=== PATIENT | female | born 1970 | race Caucasian/White ===

== ENCOUNTER 2020-03-22 02:47 | Emergency (ER) | payer MEDICAID ==
[~2020-03-22] VITALS: Ht 177.8 cm; Wt 77.1 kg
[2020-03-22] MEDS ORDERED: LISINOPRIL 10 MG TABLET PO ONE (04:15)
[2020-03-22] MEDS ORDERED: AZITHROMYCIN 250 MG TABLET PO ONE (04:30)
[2020-03-22] MEDS ORDERED: CEFTRIAXONE 500 MG VIAL IM ONE (04:30)
[2020-03-22] MEDS ORDERED: AZITHROMYCIN 250 MG TABLET ONE (04:33)
[2020-03-22] MEDS ORDERED: LISINOPRIL 10 MG TABLET ONE (04:33)
[2020-03-22] MEDS ORDERED: CEFTRIAXONE 500 MG VIAL ONE (04:34)
[2020-03-22 04:50] VITALS: BP 198/117
--- NOTE | 2020-03-22 04:59 | NUR ---
URINE SENT EARLIER, MEDS ADMINISTERED, PT AWAITING FOR LAB RESULTS.
--- NOTE | 2020-03-22 04:59 | NUR ---
PT REFUSED TO WAIT FOR ACI AND ELOPED, PT AMBULATED W/O DIFF/TOOK ALL BELONGINGS.
[2020-03-25 13:21] LABS: *GC NAA Positive (Negative); *TRIC.VAG. NAA Negative (Negative)
== END 2020-03-22 04:59 | disposition left against medical advice (07) ==
LOC: ER 02:59
DX: Z20.2 Contact with and (suspected) exposure to infections with a predominantly sexual mode of transmission (principal); Z88.0 Allergy status to penicillin; Z85.828 Personal history of other malignant neoplasm of skin; I10 Essential (primary) hypertension
CPT/HCPCS: 87491; 96372; 99284; J0696; A4663; Q0144

== ENCOUNTER 2022-06-19 01:30 | Emergency (ER) | payer MEDICAID ==
[~2022-06-19] VITALS: Ht 177.8 cm; Wt 72.6 kg
--- NOTE | 2022-06-19 02:27 | NUR ---
PATIENT AMBULATED TO ROOM, INFORMED OF PLAN OF CARE, ASSISTED INTO GOWN AND PLACED ON MONITOR. NO S/S OF ANY DISTRESS NOTED, MD EXAM WAS DONE AT BEDSIDE.
[2022-06-19] MEDS ORDERED: CLONIDINE HCL 0.2 MG TABLET PO ONE (02:30)
[2022-06-19] MEDS ORDERED: OXYCODONE/APAP 5-325 MG TABLET PO ONE (02:30)
[2022-06-19] MEDS ORDERED: OXYCODONE/APAP 5-325 MG TABLET ONE (02:33)
[2022-06-19] MEDS ORDERED: CLONIDINE HCL 0.2 MG TABLET ONE (02:34)
--- NOTE | 2022-06-19 03:02 | NUR ---
XRAY AT BEDSIDE.
[2022-06-19] MEDS ORDERED: HYDR-3980 PO (03:57)
--- NOTE | 2022-06-19 04:19 | NUR ---
ACI GIVEN STATES UNDERSTANDING, REMAINS STABLE FOR DISCHARGE HOME.
[2022-06-19 04:20] VITALS: BP 152/93
== END 2022-06-19 04:21 | disposition home or self-care (01) ==
LOC: ER 01:30
DX: S20.211A Contusion of right front wall of thorax, initial encounter (principal); I10 Essential (primary) hypertension; Z71.6 Tobacco abuse counseling; F17.210 Nicotine dependence, cigarettes, uncomplicated; Z88.0 Allergy status to penicillin; Z79.899 Other long term (current) drug therapy; W22.8XXA Striking against or struck by other objects, initial encounter; Y93.89 Activity, other specified; Y92.89 Other specified places as the place of occurrence of the external cause; Y99.8 Other external cause status
CPT/HCPCS: 71045; A4663

== ENCOUNTER 2022-07-01 06:11 | Emergency (ER) | payer MEDICAID ==
[~2022-07-01] VITALS: Ht 177.8 cm; Wt 72.6 kg
[~2022-07-01 06:11] MED LIST: HYDR-3980 PO
[2022-07-01] MEDS ORDERED: ACETAMINOPHEN 325 MG TABLET PO ONE (07:00)
[2022-07-01] MEDS ORDERED: KETOROLAC TROMETHAMINE 30 MG INJ IM ONE (07:00)
[2022-07-01] MEDS ORDERED: DIAZEPAM 2 MG TABLET PO ONE (07:00)
[2022-07-01] MEDS ORDERED: ACETAMINOPHEN ES 500 MG TABLET ONE (07:06)
[2022-07-01] MEDS ORDERED: DIAZEPAM 2 MG TABLET ONE (07:06)
[2022-07-01] MEDS ORDERED: KETOROLAC TROMETHAMINE 30 MG INJ ONE (07:06)
--- NOTE | 2022-07-01 07:20 | NUR ---
Received patient awake in bed. AO x 4. Patient's chief complaint is back pain. She states she had a fall 2 days ago and injured her back. Patient's pain level is 10/10. Safety precautions in place. Will continue to monitor.
[2022-07-01 07:37] LABS: *BLOOD, URINE NEGATIVE (NEGATIVE); *CLARITY,URINE CLEAR (CLEAR); *COLOR,URINE YELLOW (YELLOW); *KETONES,URINE NEGATIVE (NEGATIVE); *UROBILINOGEN,URINE 0.2 E.U./dl (NORMAL); LEUKOCYTE ESTERASE ,URINE NEGATIVE (NEGATIVE); NITRITE, URINE NEGATIVE (NEGATIVE); UGLUCOSE NEGATIVE (NEGATIVE)
[2022-07-01 07:46] LABS: *URINE HCG, QUAL NEGATIVE (NEGATIVE)
[2022-07-01 07:54] LABS: *BILIRUBIN,URIN 1+ (NEGATIVE)
[2022-07-01] MEDS ORDERED: CARB15DR63 LEFT EAR (08:01)
--- NOTE | 2022-07-01 08:24 | NUR ---
Patient discharged to home in stable condition. Written and verbal after care instructions given. Patient verbalizes understanding of instructions. Stressed follow up or return to ER for worsening s/s.
[2022-07-01 08:25] VITALS: BP 141/86
[2022-07-01 09:58] LABS: BACTERIA,URINE FEW /HPF (NONE SEEN); RBC,URINE 0-3 /HPF (0-3); SQUAMOUS EPITHELIAL CELL,UR MODERATE /HPF (NONE SEEN); WBC,URINE 0-3 /HPF (0-3)
[2022-07-01 09:59] LABS: URINE AMORPHOUS PHOSPHATES MANY /HPF
== END 2022-07-01 08:31 | disposition home or self-care (01) ==
LOC: ER 06:18
DX: M54.50 Low back pain, unspecified (principal); H61.22 Impacted cerumen, left ear; G89.29 Other chronic pain; M54.9 Dorsalgia, unspecified; I10 Essential (primary) hypertension; F17.210 Nicotine dependence, cigarettes, uncomplicated; Z76.5 Malingerer [conscious simulation]; Z88.0 Allergy status to penicillin; Z79.899 Other long term (current) drug therapy
CPT/HCPCS: 99283; 81001; 84703; 69209; 96372; J1885; A4663; A9150